=== PATIENT | male | born 1950 | race Caucasian/White ===

== ENCOUNTER 2016-05-14 12:33 | Emergency (ER) | payer BC ==
[2016-05-14 13:53] LABS: BASO # 0.1 K/mm3 (0.0-0.2); BASO % 0.8 % (0.0-1.0); EOS # 0.3 K/mm3 (0.0-0.50); LARGE UNSTAINED CELL # 0.2 K/mm3 (0.0-0.4); LARGE UNSTAINED CELL % 1.6 % (0.0-4.0); LYMPH # 1.3 K/mm3 (1.5-4.5); LYMPH % 14.1 % (24.0-44.0); MEAN CORPUSCULAR HEMOGLOBIN 29.3 pg (27.0-33.0); MEAN CORPUSCULAR VOLUME 88.9 fl (80.0-96.0); MONO # 0.5 K/mm3 (0.0-0.8); NEUTROPHILS # 7.1 K/mm3 (1.8-7.7); NEUTROPHILS % 75.4 % (36.0-66.0); PLATELET COUNT, AUTOMATED 356 k/mm3 (150-450); RED CELL DISTRIBUTION WIDTH 11.9 % (11.5-14.5); WHITE BLOOD COUNT 9.4 K/mm3 (4.0-10.0)
[2016-05-14 14:04] LABS: ANION GAP 7 MEQ/L (8-16); BLOOD UREA NITROGEN 18 MG/DL (7-18); CARBON DIOXIDE LEVEL 30 MEQ/L (21-32); CHLORIDE LEVEL 104 MEQ/L (98-107); CREATININE FOR GFR 0.97 MG/DL (0.70-1.30); GLOMERULAR FILTRATION RATE > 60.0 (>49); GLUCOSE, FASTING 86 MG/DL (80-110); POTASSIUM SERUM 4.2 MEQ/L (3.5-5.1); SODIUM LEVEL 141 MEQ/L (136-145)
[2016-05-14] MEDS ORDERED: ISOVUE-370 76% 100ML VIAL (Q9967) As Ordered ONE (14:13)
--- NOTE | 2016-05-14 15:05 | REP ---
CT pulmonary angiogram: With IV contrast. History: Right-sided chest pain, question pulmonary embolus. Comparison studies: CT study of the chest January 05, 2007. Contrast dose: 75 cc's of Isovue [address] technique: Helical scanning is acquired and overlapping 1.5 mm and contiguous 3 mm axial images are reformatted. In addition, a 3-D work station is deployed to generate thick slab maximum intensity projection images in sagittal and coronal imaging projections. CT pulmonary angiographic findings: There is good opacification of the pulmonary arterial tree. There is no CT evidence of pulmonary embolism. The thoracic aorta enhances homogeneously and is normal in caliber and contour. No aneurysm or dissection is seen. There is a peripheral and wedge-shaped infiltrate in the lateral segment of the right middle lobe associated with some plate-like atelectasis in the right middle lobe. No other infiltrate is seen. No pulmonary mass lesion is seen. No pleural effusion is noted. There is minimal linear fibrosis or plate-like atelectasis in the lower lobes bilaterally. No hilar or mediastinal mass or adenopathy is seen. The visualized upper abdominal structures are unremarkable. Impression: 1. No CT evidence of pulmonary embolus. 2. Right middle lobe infiltrate. 3. Plate-like atelectasis right middle lobe and both lower lobes. Signed by Moustapha Damon MD 05/14/2016 03:51 P
--- NOTE | 2016-05-14 15:07 | EDDOCDS ---
Nurse's Notes [facility] Name: Thelma Ocasio Age: 66 yrs Sex: Male : 1950 Arrival Date: 05/14/2016 Time: 12:33 Bed I6 / 28 Private MD: Ayush Michelle H. Diagnosis: Other pneumonia, unspecified organism-resolving right middle lobe pneumonia, no PE on CT Presentation: 05/14 12:38 Presenting complaint: Patient states: dx with pneumonia 1 week ago- Right sided srm pneumonia. developed right sided chest pain this past Tuesday. PMD wanted to do outpt CT but insurance wouldn't cover it. so mayda said to come her and get d dimer and have ct here if needed. Aspirin was not taken prior to arrival. Adult Sepsis Screening: The patient does not have new or worsening altered mentation. Patient's respiratory rate is less than 22. Systolic blood pressure is greater than 100. Patient has a qSOFA score of 0- Negative Sepsis Screen. Suicide/Homicide risk assessment- the patient denies having any suicidal and/or homicidal ideations and does not present with any other emotional, behavioral or mental health complaints. 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 Transition of care: patient was received from a primary care office; mayda. 12:38 Acuity: JARRELL Level 3 srm 12:38 Method Of Arrival: Walkin/Carried/Asstd [facility] Triage Assessment: 12:43 General: Appears in no apparent distress, Behavior is appropriate for age, cooperative. srm Pain: Denies pain. 15:05 Pt Declines HIV testing. Cardiovascular: Chest pain is denied. kc3 Historical: - Allergies: no known allergies; - Home Meds: 1. Synthroid 125 mcg Oral tab 1 tab once daily - PMHx: Thyroid problem; squamous celll carcinoma of toungue 2006; - PSHx: Adenoidectomy; Tonsillectomy; infusaport insertion and removal; hernia; feeding tube placment and removal; - Social history: Smoking status: Patient states former smoker of tobacco. No barriers to communication noted, The patient speaks fluent Albanian, Speaks appropriately for age. - Family history: Not pertinent. - : The pt / caregiver states he / she is not on anticoagulants. Home medication list is obtained from the patient. - Exposure Risk Screening:: None identified. Screenin:17 Screening information is obtained from the patient. Fall risk: No risks identified. pml Assistance ADL's: requires no assistance with activities of daily living. Abuse/DV Screen: The patient / caregiver reports he/she is: not in a situation that causes fear, pain or injury. Nutritional screening: No deficits noted. Advance Directives: Currently, there is no health care proxy. home support is adequate. Assessment: 12:51 General: Appears in no apparent distress, Behavior is appropriate for age, cooperative, srm pt's ekg and presenting complaint discussed with dr crowe. pt to proceed through RCE process. . Cardiovascular: Rhythm is regular. Respiratory:. 14:17 General: Appears in no apparent distress, Behavior is appropriate for age, cooperative. pml Pain: Denies pain. Neurological: Level of Consciousness is awake, alert, Oriented to person, place, time. Cardiovascular: Capillary refill < 3 seconds. Respiratory: Airway is patent Respiratory effort is even, unlabored. Derm: Skin is pink, warm & dry. 15:03 General: Appears in no apparent distress, comfortable, Behavior is appropriate for age, kc3 cooperative. Neurological: Level of Consciousness is awake, alert, obeys commands, Oriented to person, place, time. Respiratory: Respiratory effort is even, unlabored. Derm: Skin is pink, warm & dry. Vital Signs: 12:34 BP 164 / 104; Pulse 71; Resp 18 S; Temp 98.0; Pulse Ox 98% on R/A; Weight 86.18 kg (R); dd6 Height 5 ft. 8 in. (172.72 cm) (R); 13:16 BP 138 / 86 RA Sitting (man/lg); jb5 15:04 BP 163 / 98; Pulse 62; Resp 18; Temp 97.2(O); Pulse Ox 97% on R/A; kc3 12:34 Body Mass Index 28.89 (86.18 kg, 172.72 cm) dd6 Vitals: 12:34 Log In Time: May 14, 2016 at 12:32. RN notified that patient meets Red Flag dd6 criteria. ED Course: 12:34 Patient visited by Keanu Garcia PCA. dd6 12:34 Ayush Michelle is Private Physician. dd6 12:34 Patient moved to Waiting dd6 12:36 Patient moved to PR2 / 26 srm 12:41 Triage Initiated [facility] 12:43 Patient visited by Karen Chowdary RN. srm 12:43 EKG done. (by ED staff). gave to karen Montgomery RN. jb5 12:44 Patient visited by Mira Mnea PCA. jb5 12:51 EKG done. Reviewed by Veronica Rueda MD. srm 12:53 Patient visited by Karen Chowdary RN. srm 12:56 Patient moved to Triage 1 ttb 13:12 Rosanna Perea PA-C is PHCP. dt4 13:12 Veronica Rueda MD is Attending Physician. dt4 13:12 Patient visited by Rosanna Perea PA-C. dt4 13:16 Patient visited by Mira Mena PCA. jb5 13:39 Patient moved to I7 / 29 jo3 13:40 Patient moved to TR3 srm 14:07 [facility] Payment Agreement was scanned into [employer] and attached to record. lg 14:08 Patient moved to I6 / 28 jb5 14:17 Patient visited by Rosanna Perea PA-C. dt4 14:17 The patient / caregiver is instructed regarding the plan of care and ED course. Patient pml has correct armband on for positive identification. Placed in gown. Bed in low position. Call light in reach. Side rails up X2. 14:17 Inserted peripheral IV: 18gauge IV in right antecubital area and blood collected. pml Patient tolerated the procedure well. 14:18 Patient visited by Josefina Russell RN. pml 14:54 Ayush Michelle is Referral Physician. dt4 15:04 Cardiac monitoring not applicable on this patient. per provider discretion. kc3 15:04 Discontinued IV lock intact, bleeding controlled, pressure dressing applied, No kc3 redness/swelling at site. No procedures done that require assistance. Order Results: Lab Order: D-Dimer Quant; SPEC'M 05/14/16 13:40 Test: D-DIMER QUANT; Value: 1480.6; Range: <500; Abnormal: Above high normal; Units: ng/ml; Status: F Lab Order: CBC with Diff; SPEC'M 05/14/16 13:40 Test: WHITE BLOOD COUNT; Value: 9.4; Range: 4.0-10.0; Units: K/mm3; Status: F Test: RED BLOOD COUNT; Value: 5.21; Range: 4.30-6.10; Units: M/mm3; Status: F Test: HEMOGLOBIN; Value: 15.3; Range: 14.0-18.0; Units: g/dl; Status: F Test: HEMATOCRIT; Value: 46.3; Range: 42.0-52.0; Units: %; Status: F Test: MEAN CORPUSCULAR VOLUME; Value: 88.9; Range: 80.0-96.0; Units: fl; Status: F Test: MEAN CORPUSCULAR HEMOGLOBIN; Value: 29.3; Range: 27.0-33.0; Units: pg; Status: F Test: MEAN CORPUSCULAR HGB CONC; Value: 33.0; Range: 32.0-36.5; Units: g/dl; Status: F Test: RED CELL DISTRIBUTION WIDTH; Value: 11.9; Range: 11.5-14.5; Units: %; Status: F Test: PLATELET COUNT, AUTOMATED; Value: 356; Range: 150-450; Units: k/mm3; Status: F Test: NEUTROPHILS %; Value: 75.4; Range: 36.0-66.0; Abnormal: Above high normal; Units: %; Status: F Test: LYMPH %; Value: 14.1; Range: 24.0-44.0; Abnormal: Below low normal; Units: %; Status: F Test: MONO %; Value: 5.0; Range: 0.0-5.0; Units: %; Status: F Test: EOS %; Value: 3.0; Range: 0.0-3.0; Units: %; Status: F Test: BASO %; Value: 0.8; Range: 0.0-1.0; Units: %; Status: F Test: LARGE UNSTAINED CELL %; Value: 1.6; Range: 0.0-4.0; Units: %; Status: F Test: NEUTROPHILS #; Value: 7.1; Range: 1.8-7.7; Units: K/mm3; Status: F Test: LYMPH #; Value: 1.3; Range: 1.5-4.5; Abnormal: Below low normal; Units: K/mm3; Status: F Test: MONO #; Value: 0.5; Range: 0.0-0.8; Units: K/mm3; Status: F Test: EOS #; Value: 0.3; Range: 0.0-0.50; Units: K/mm3; Status: F Test: BASO #; Value: 0.1; Range: 0.0-0.2; Units: K/mm3; Status: F Test: LARGE UNSTAINED CELL #; Value: 0.2; Range: 0.0-0.4; Units: K/mm3; Status: F Lab Order: Basic Metabolic Profile; SPEC'M 05/14/16 13:40 Test: GLUCOSE, FASTING; Value: 86; Range: 80-110; Units: MG/DL; Status: F Test: BLOOD UREA NITROGEN; Value: 18; Range: 7-18; Units: MG/DL; Status: F Test: CREATININE FOR GFR; Value: 0.97; Range: 0.70-1.30; Units: MG/DL; Status: F Test: GLOMERULAR FILTRATION RATE; Value: > 60.0; Range: >49; Status: F Test: SODIUM LEVEL; Value: 141; Range: 136-145; Units: MEQ/L; Status: F Test: POTASSIUM SERUM; Value: 4.2; Range: 3.5-5.1; Units: MEQ/L; Status: F Test: CHLORIDE LEVEL; Value: 104; Range: 98-107; Units: MEQ/L; Status: F Test: CARBON DIOXIDE LEVEL; Value: 30; Range: 21-32; Units: MEQ/L; Status: F Test: ANION GAP; Value: 7; Range: 8-16; Abnormal: Below low normal; Units: MEQ/L; Status: F Test: CALCIUM LEVEL; Value: 10.0; Range: 8.8-10.2; Units: MG/DL; Status: F Test Note: ; Units are mL/min/1.73 m2 Chronic Kidney Disease Staging per NKF: Stage I & II GFR >=60 Normal to Mildly Decreased Stage III GFR 30-59 Moderately Decreased Stage IV GFR 15-29 Severely Decreased Stage V GFR <15 Very Little GFR Left ESRD GFR <15 on BIOMETRICS ANALYST Outcome: 14:55 Discharge ordered by Provider. dt4 15:05 Discharge Assessment: Patient awake, alert and oriented x 3. No cognitive and/or kc3 functional deficits noted. Patient verbalized understanding of disposition instructions. patient administered narcotics - no. The following High Risk Discharge criteria are identified: None. Discharged to home ambulatory. Condition: stable. Discharge instructions given to patient, Instructed on discharge instructions, follow up and referral plans. Demonstrated understanding of instructions, Pt was receptive of discharge instructions/ teaching. CT Study completed. Property :Personal belongings accompany Pt. 15:05 Patient left the ED. kc3 Signatures: Karen Chowdary, RN RN Yamila Douglass, Reg Reg lg Mira Mena, LOCK UP WORKER LOCK UP WORKER jb5 Yvonne MendozaRN RN jo3 Keanu Garcia, LOCK UP WORKER LOCK UP WORKER dd6 Josefina RussellRN Maryjane Verdin RN RN Rosanna Ramirez, PA-C PA-C dt4 Joyce Tello,RN RN kc3 MTDCandida
--- NOTE | 2016-05-14 15:07 | EDDOCDS ---
Physician Documentation [facility] Name: Thelma Ocasio Age: 66 yrs Sex: Male : 1950 Arrival Date: 05/14/2016 Time: 12:33 Bed I6 / 28 Private MD: Ayush Michelle H. Disposition: 05/14/16 14:55 Discharged to Home/Self Care. Impression: Other pneumonia, unspecified organism - resolving right middle lobe pneumonia, no PE on CT. - Condition is Stable. - Discharge Instructions: Pneumonia, Adult. - Medication Reconciliation, Local Pharmacy Hours form. - Follow up: Emergency Department; When: As needed; Reason: Worsening of conditions. Follow up: Ayush Michelle; When: 2 - 3 days; Reason: Wound/Symptom Recheck, Recheck today's complaints, Continuance of care. - Problem is new. - Symptoms are unchanged. Historical: - Allergies: no known allergies; - Home Meds: 1. Synthroid 125 mcg Oral tab 1 tab once daily - PMHx: Thyroid problem; squamous celll carcinoma of toungue 2006; - PSHx: Adenoidectomy; Tonsillectomy; infusaport insertion and removal; hernia; feeding tube placment and removal; - Social history: Smoking status: Patient states former smoker of tobacco. No barriers to communication noted, The patient speaks fluent Cymro, Speaks appropriately for age. - Family history: Not pertinent. - : The pt / caregiver states he / she is not on anticoagulants. Home medication list is obtained from the patient. - Exposure Risk Screening:: None identified. Vital Signs: 05/14 12:34 BP 164 / 104; Pulse 71; Resp 18 S; Temp 98.0; Pulse Ox 98% on R/A; Weight 86.18 kg / dd6 189.99 lbs (R); Height 5 ft. 8 in. (172.72 cm) (R); 13:16 BP 138 / 86 RA Sitting (man/lg); jb5 15:04 BP 163 / 98; Pulse 62; Resp 18; Temp 97.2(O); Pulse Ox 97% on R/A; kc3 12:34 Body Mass Index 28.89 (86.18 kg, 172.72 cm) dd6 MDM: 12:37 ECG WITH READING ER PHYS+CARDIAG ordered. EDMS 13:12 Recheck B/P ordered. dt4 13:36 IV Saline Lock ordered. dt4 13:36 ED course: PT AND PRESENT TO ED TODAY STATING PCP WOULD LIKE D-DIMER DRAWN AND dt4 POTENTIALLY A CT ANGIO TO R/O A PE. PT AND STATE THEY WERE RECENTLY IN [place], [place]OVE AND SPENT 5 DAYS IN [place] AND WHILE DRIVING UP TO [place], PT DEVELOPED SUDDEN ONSET RIGHT-SIDED CHEST PAIN. STATES THIS PAIN WAXED AND WANED FOR DAYS UNTIL HE WAS SEEN BY URGENT CARE, HAD A CXR POSITIVE FOR PNEUMONIA. PT STATES SINCE TAKING THE ANTIBIOTIC, HAS BEEN FEELING BETTER EVERYDAY AND CURRENTLY DENIES ANY CHEST PAIN/SOB, FEVER, N/V. . 13:38 D-Dimer Quant Ordered. EDMS 13:38 CBC with Diff Ordered. EDMS 13:38 Basic Metabolic Profile Ordered. EDMS 13:42 Financial registration complete. lg 14:07 [facility] Payment Agreement was scanned into [employer] and attached to record. lg 14:07 CT Chest Angio R/O PE Ordered. EDMS Signatures: Dispatcher [employer] EDMS Karen Chowdary, RN RN srm Yamila Arthur, Reg Reg lg Josefina Russell,RN YUSUF pml Rosanna Perea, PA-C PA-C dt4 Joyce Tello,RN RN kc3 The chart was reviewed and I authenticate all verbal orders and agree with the evaluation and treatment provided.Attachments: 14:07 [facility] Payment Agreement lg MTDD
--- NOTE | 2016-05-14 19:32 | ECGEPIP ---
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
--- NOTE | 2016-05-16 16:07 | EDDOCDS ---
Nurse's Notes [facility] Name: Juliann Ocasio Age: 66 yrs Sex: Male : 1950 Arrival Date: 05/14/2016 Time: 12:33 Bed I6 / 28 Private MD: Ayush Michelle H. Diagnosis: Other pneumonia, unspecified organism-resolving right middle lobe pneumonia, no PE on CT Presentation: 05/14 12:38 Presenting complaint: Patient states: dx with pneumonia 1 week ago- Right sided srm pneumonia. developed right sided chest pain this past Tuesday. PMD wanted to do outpt CT but insurance wouldn't cover it. so mayda said to come her and get d dimer and have ct here if needed. Aspirin was not taken prior to arrival. Adult Sepsis Screening: The patient does not have new or worsening altered mentation. Patient's respiratory rate is less than 22. Systolic blood pressure is greater than 100. Patient has a qSOFA score of 0- Negative Sepsis Screen. Suicide/Homicide risk assessment- the patient denies having any suicidal and/or homicidal ideations and does not present with any other emotional, behavioral or mental health complaints. Status: Patient is not a field service specialist or dependent. Transition of care: patient was received from a primary care office; mayda. 12:38 Acuity: JARRELL Level 3 srm 12:38 Method Of Arrival: Walkin/Carried/Asstd [facility] Triage Assessment: 12:43 General: Appears in no apparent distress, Behavior is appropriate for age, cooperative. srm Pain: Denies pain. 15:05 Pt Declines HIV testing. Cardiovascular: Chest pain is denied. kc3 Historical: - Allergies: no known allergies; - Home Meds: 1. Synthroid 125 mcg Oral tab 1 tab once daily - PMHx: Thyroid problem; squamous celll carcinoma of toungue 2006; - PSHx: Adenoidectomy; Tonsillectomy; infusaport insertion and removal; hernia; feeding tube placment and removal; - Social history: Smoking status: Patient states former smoker of tobacco. No barriers to communication noted, The patient speaks fluent Azeri, Speaks appropriately for age. - Family history: Not pertinent. - : The pt / caregiver states he / she is not on anticoagulants. Home medication list is obtained from the patient. - Exposure Risk Screening:: None identified. Screenin:17 Screening information is obtained from the patient. Fall risk: No risks identified. pml Assistance ADL's: requires no assistance with activities of daily living. Abuse/DV Screen: The patient / caregiver reports he/she is: not in a situation that causes fear, pain or injury. Nutritional screening: No deficits noted. Advance Directives: Currently, there is no health care proxy. home support is adequate. Assessment: 12:51 General: Appears in no apparent distress, Behavior is appropriate for age, cooperative, srm pt's ekg and presenting complaint discussed with dr crowe. pt to proceed through RCE process. . Cardiovascular: Rhythm is regular. Respiratory:. 14:17 General: Appears in no apparent distress, Behavior is appropriate for age, cooperative. pml Pain: Denies pain. Neurological: Level of Consciousness is awake, alert, Oriented to person, place, time. Cardiovascular: Capillary refill < 3 seconds. Respiratory: Airway is patent Respiratory effort is even, unlabored. Derm: Skin is pink, warm & dry. 15:03 General: Appears in no apparent distress, comfortable, Behavior is appropriate for age, kc3 cooperative. Neurological: Level of Consciousness is awake, alert, obeys commands, Oriented to person, place, time. Respiratory: Respiratory effort is even, unlabored. Derm: Skin is pink, warm & dry. Vital Signs: 12:34 BP 164 / 104; Pulse 71; Resp 18 S; Temp 98.0; Pulse Ox 98% on R/A; Weight 86.18 kg (R); dd6 Height 5 ft. 8 in. (172.72 cm) (R); 13:16 BP 138 / 86 RA Sitting (man/lg); jb5 15:04 BP 163 / 98; Pulse 62; Resp 18; Temp 97.2(O); Pulse Ox 97% on R/A; kc3 12:34 Body Mass Index 28.89 (86.18 kg, 172.72 cm) dd6 Vitals: 12:34 Log In Time: May 14, 2016 at 12:32. RN notified that patient meets Red Flag dd6 criteria. ED Course: 12:34 Patient visited by Keanu Garcia PCA. dd6 12:34 Ayush Michelle is Private Physician. dd6 12:34 Patient moved to Waiting dd6 12:36 Patient moved to PR2 / 26 srm 12:41 Triage Initiated [facility] 12:43 Patient visited by Karen Chowdary RN. srm 12:43 EKG done. (by ED staff). gave to karen Montgomery RN. jb5 12:44 Patient visited by Mira Mena PCA. jb5 12:51 EKG done. Reviewed by Veronica Rueda MD. srm 12:53 Patient visited by Karen Chowdary RN. srm 12:56 Patient moved to Triage 1 ttb 13:12 Rosanna Perea PA-C is PHCP. dt4 13:12 Veronica Rueda MD is Attending Physician. dt4 13:12 Patient visited by Rosanna Perea PA-C. dt4 13:16 Patient visited by Mira Mena PCA. jb5 13:39 Patient moved to I7 / 29 jo3 13:40 Patient moved to TR3 srm 14:07 [place] was scanned into [employer] and attached to record. lg 14:08 Patient moved to I6 / 28 jb5 14:17 Patient visited by Rosanna Perea PA-C. dt4 14:17 The patient / caregiver is instructed regarding the plan of care and ED course. Patient pml has correct armband on for positive identification. Placed in gown. Bed in low position. Call light in reach. Side rails up X2. 14:17 Inserted peripheral IV: 18gauge IV in right antecubital area and blood collected. pml Patient tolerated the procedure well. 14:18 Patient visited by Josefina Russell RN. pml 14:54 Ayush Michelle is Referral Physician. dt4 15:04 Cardiac monitoring not applicable on this patient. per provider discretion. kc3 15:04 Discontinued IV lock intact, bleeding controlled, pressure dressing applied, No kc3 redness/swelling at site. No procedures done that require assistance. 15:25 CT Chest Angio R/O PE Returned. EDMS 19:42 EKG-ADULT Returned. EDMS 05/15 07:47 ECG/EKG was scanned into [employer] and attached to record. gb 07:48 Radiology Report was scanned into [employer] and attached to record. gb 08:08 T-Sheet-- Draft Copy was scanned into [employer] and attached to record. [facility] Order Results: Lab Order: D-Dimer Quant; SPEC'M 05/14/16 13:40 Test: D-DIMER QUANT; Value: 1480.6; Range: <500; Abnormal: Above high normal; Units: ng/ml; Status: F Lab Order: CBC with Diff; SPEC'M 05/14/16 13:40 Test: WHITE BLOOD COUNT; Value: 9.4; Range: 4.0-10.0; Units: K/mm3; Status: F Test: RED BLOOD COUNT; Value: 5.21; Range: 4.30-6.10; Units: M/mm3; Status: F Test: HEMOGLOBIN; Value: 15.3; Range: 14.0-18.0; Units: g/dl; Status: F Test: HEMATOCRIT; Value: 46.3; Range: 42.0-52.0; Units: %; Status: F Test: MEAN CORPUSCULAR VOLUME; Value: 88.9; Range: 80.0-96.0; Units: fl; Status: F Test: MEAN CORPUSCULAR HEMOGLOBIN; Value: 29.3; Range: 27.0-33.0; Units: pg; Status: F Test: MEAN CORPUSCULAR HGB CONC; Value: 33.0; Range: 32.0-36.5; Units: g/dl; Status: F Test: RED CELL DISTRIBUTION WIDTH; Value: 11.9; Range: 11.5-14.5; Units: %; Status: F Test: PLATELET COUNT, AUTOMATED; Value: 356; Range: 150-450; Units: k/mm3; Status: F Test: NEUTROPHILS %; Value: 75.4; Range: 36.0-66.0; Abnormal: Above high normal; Units: %; Status: F Test: LYMPH %; Value: 14.1; Range: 24.0-44.0; Abnormal: Below low normal; Units: %; Status: F Test: MONO %; Value: 5.0; Range: 0.0-5.0; Units: %; Status: F Test: EOS %; Value: 3.0; Range: 0.0-3.0; Units: %; Status: F Test: BASO %; Value: 0.8; Range: 0.0-1.0; Units: %; Status: F Test: LARGE UNSTAINED CELL %; Value: 1.6; Range: 0.0-4.0; Units: %; Status: F Test: NEUTROPHILS #; Value: 7.1; Range: 1.8-7.7; Units: K/mm3; Status: F Test: LYMPH #; Value: 1.3; Range: 1.5-4.5; Abnormal: Below low normal; Units: K/mm3; Status: F Test: MONO #; Value: 0.5; Range: 0.0-0.8; Units: K/mm3; Status: F Test: EOS #; Value: 0.3; Range: 0.0-0.50; Units: K/mm3; Status: F Test: BASO #; Value: 0.1; Range: 0.0-0.2; Units: K/mm3; Status: F Test: LARGE UNSTAINED CELL #; Value: 0.2; Range: 0.0-0.4; Units: K/mm3; Status: F Lab Order: Basic Metabolic Profile; SPEC'M 05/14/16 13:40 Test: GLUCOSE, FASTING; Value: 86; Range: 80-110; Units: MG/DL; Status: F Test: BLOOD UREA NITROGEN; Value: 18; Range: 7-18; Units: MG/DL; Status: F Test: CREATININE FOR GFR; Value: 0.97; Range: 0.70-1.30; Units: MG/DL; Status: F Test: GLOMERULAR FILTRATION RATE; Value: > 60.0; Range: >49; Status: F Test: SODIUM LEVEL; Value: 141; Range: 136-145; Units: MEQ/L; Status: F Test: POTASSIUM SERUM; Value: 4.2; Range: 3.5-5.1; Units: MEQ/L; Status: F Test: CHLORIDE LEVEL; Value: 104; Range: 98-107; Units: MEQ/L; Status: F Test: CARBON DIOXIDE LEVEL; Value: 30; Range: 21-32; Units: MEQ/L; Status: F Test: ANION GAP; Value: 7; Range: 8-16; Abnormal: Below low normal; Units: MEQ/L; Status: F Test: CALCIUM LEVEL; Value: 10.0; Range: 8.8-10.2; Units: MG/DL; Status: F Test Note: ; Units are mL/min/1.73 m2 Chronic Kidney Disease Staging per NKF: Stage I & II GFR >=60 Normal to Mildly Decreased Stage III GFR 30-59 Moderately Decreased Stage IV GFR 15-29 Severely Decreased Stage V GFR <15 Very Little GFR Left ESRD GFR <15 on BEAD PREPARER Radiology Order: EKG-ADULT Test: EKG-ADULT REASON FOR EXAMINATION: Chest Pain; Stationary ECG Study; [facility] - ED; ; Test Date: 2016-05-14; Pat Name: JULIANN OCASIO Department:; Room: -; 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:; : 1950 Requested By: Veronica Rueda; Order Number: [id number] Reading MD: Veronica Rueda; Measurements; Intervals [place]; Rate: 76 P: 51; ID: [id number] QRS: -35; QRSD: 124 T: 67; QT: 375; QTc: 423; Interpretive Statements; SINUS RHYTHM; MARKED LEFT AXIS DEVIATION; MODERATE INTRAVENTRICULAR CONDUCTION DELAY; NSTTW ABNORMALITY; NO PRIOR FOR COMPARISON; Electronically Signed On 05-14-2016 19:32:14 EST by Veronica Rueda; Radiology Order: CT Chest Angio R/O PE Test: CT Chest Angio R/O PE REASON FOR EXAMINATION: right sided chest pain, r/o PE; CT pulmonary angiogram: With IV contrast.; ; History: Right-sided chest pain, question pulmonary embolus.; ; Comparison studies: CT study of the chest January 05, 2007.; ; Contrast dose: 75 cc's of Isovue 370 are administered intravenously.; ; CT technique: Helical scanning is acquired and overlapping 1.5 mm and contiguous; 3 mm axial images are reformatted. In addition, a 3-D work station is deployed; to generate thick slab maximum intensity projection images in sagittal and; coronal imaging projections.; ; CT pulmonary angiographic findings: There is good opacification of the pulmonary; arterial tree. There is no CT evidence of pulmonary embolism. The thoracic; aorta enhances homogeneously and is normal in caliber and contour. No aneurysm; or dissection is seen. There is a peripheral and wedge-shaped infiltrate in the; lateral segment of the right middle lobe associated with some plate-like; atelectasis in the right middle lobe. No other infiltrate is seen. No pulmonary; mass lesion is seen. No pleural effusion is noted. There is minimal linear; fibrosis or plate-like atelectasis in the lower lobes bilaterally. No hilar or; mediastinal mass or adenopathy is seen. The visualized upper abdominal; structures are unremarkable.; ; Impression:; ; 1. No CT evidence of pulmonary embolus.; ; 2. Right middle lobe infiltrate.; ; 3. Plate-like atelectasis right middle lobe and both lower lobes.; ; ; ; ; Signed by; Moustapha Damon MD 05/14/2016 03:51 P; Outcome: 05/14 14:55 Discharge ordered by Provider. dt4 15:05 Discharge Assessment: Patient awake, alert and oriented x 3. No cognitive and/or kc3 functional deficits noted. Patient verbalized understanding of disposition instructions. patient administered narcotics - no. The following High Risk Discharge criteria are identified: None. Discharged to home ambulatory. Condition: stable. Discharge instructions given to patient, Instructed on discharge instructions, follow up and referral plans. Demonstrated understanding of instructions, Pt was receptive of discharge instructions/ teaching. CT Study completed. Property :Personal belongings accompany Pt. 15:05 Patient left the ED. kc3 Signatures: Dispatcher [employer] EDMS Karen Chowdary, RN YUSUF [facility] Fidelina, Bhavani, Reg Reg gb Yamila Arthur, Reg Reg lg Mira Mena, MECHANIC AND WELDER MECHANIC AND WELDER jb5 Yvonne Mendoza RN RN jo3 Keanu Garcia, MECHANIC AND WELDER MECHANIC AND WELDER dd6 Josefina Russell RN RN pml Conner, Teresa, RN RN ttb Tschudi, Diane, PA-C PA-C dt4 Joyce Tello RN RN kc3 Veronica Lowery Chart Complete MTDD
--- NOTE | 2016-05-16 16:07 | EDDOCDS ---
Physician Documentation [facility] Name: Thelma Ocasio Age: 66 yrs Sex: Male : 1950 Arrival Date: 05/14/2016 Time: 12:33 Bed I6 / 28 Private MD: Ayush Michelle H. Disposition: 05/14/16 14:55 Discharged to Home/Self Care. Impression: Other pneumonia, unspecified organism - resolving right middle lobe pneumonia, no PE on CT. - Condition is Stable. - Discharge Instructions: Pneumonia, Adult. - Medication Reconciliation, Local Pharmacy Hours form. - Follow up: Emergency Department; When: As needed; Reason: Worsening of conditions. Follow up: Ayush Michelle; When: 2 - 3 days; Reason: Wound/Symptom Recheck, Recheck today's complaints, Continuance of care. - Problem is new. - Symptoms are unchanged. Historical: - Allergies: no known allergies; - Home Meds: 1. Synthroid 125 mcg Oral tab 1 tab once daily - PMHx: Thyroid problem; squamous celll carcinoma of toungue 2006; - PSHx: Adenoidectomy; Tonsillectomy; infusaport insertion and removal; hernia; feeding tube placment and removal; - Social history: Smoking status: Patient states former smoker of tobacco. No barriers to communication noted, The patient speaks fluent Vietnamese, Speaks appropriately for age. - Family history: Not pertinent. - : The pt / caregiver states he / she is not on anticoagulants. Home medication list is obtained from the patient. - Exposure Risk Screening:: None identified. Vital Signs: 05/14 12:34 BP 164 / 104; Pulse 71; Resp 18 S; Temp 98.0; Pulse Ox 98% on R/A; Weight 86.18 kg / dd6 189.99 lbs (R); Height 5 ft. 8 in. (172.72 cm) (R); 13:16 BP 138 / 86 RA Sitting (man/lg); jb5 15:04 BP 163 / 98; Pulse 62; Resp 18; Temp 97.2(O); Pulse Ox 97% on R/A; kc3 12:34 Body Mass Index 28.89 (86.18 kg, 172.72 cm) dd6 MDM: 12:37 ECG WITH READING ER PHYS+CARDIAG ordered. EDMS 13:12 Recheck B/P ordered. dt4 13:36 IV Saline Lock ordered. dt4 13:36 ED course: PT AND PRESENT TO ED TODAY STATING PCP WOULD LIKE D-DIMER DRAWN AND dt4 POTENTIALLY A CT ANGIO TO R/O A PE. PT AND STATE THEY WERE RECENTLY IN [place], DROVE AND SPENT 5 DAYS IN [place] AND WHILE DRIVING UP TO [place], PT DEVELOPED SUDDEN ONSET RIGHT-SIDED CHEST PAIN. STATES THIS PAIN WAXED AND WANED FOR DAYS UNTIL HE WAS SEEN BY URGENT CARE, HAD A CXR POSITIVE FOR PNEUMONIA. PT STATES SINCE TAKING THE ANTIBIOTIC, HAS BEEN FEELING BETTER EVERYDAY AND CURRENTLY DENIES ANY CHEST PAIN/SOB, FEVER, N/V. . 13:38 D-Dimer Quant Ordered. EDMS 13:38 CBC with Diff Ordered. EDMS 13:38 Basic Metabolic Profile Ordered. EDMS 13:42 Financial registration complete. lg 14:[address] [facility] [place] Payment Agreement was scanned into [employer] and attached to record. lg 14:07 CT Chest Angio R/O PE Ordered. EDMS 05/15 07:47 ECG/EKG was scanned into [employer] and attached to record. gb 07:48 Radiology Report was scanned into [employer] and attached to record. gb 08:08 T-Sheet-- Draft Copy was scanned into [employer] and attached to record. [facility] Signatures: Dispatcher [employer] EDNC Karen Chowdary, RN YUSUF [facility] Bhavani Kitchen, Reg Reg gb Yamila Arthur, Reg Reg lg Josefina Russell RN RN pml Tschudi, Diane, PAObed PA-C dt4 Joyce Tello RN RN kc3 Veronica Lowery [facility] The chart was reviewed and I authenticate all verbal orders and agree with the evaluation and treatment provided.Attachments: 05/14 14:[address] [facility] [place] Payment Agreement lg 05/15 07:47 ECG/EKG gb 08:08 T-Sheet-- Draft Copy [facility] Chart Complete MTDD
--- NOTE | 2016-05-16 16:07 | EDDOCDS ---
Physician Documentation [facility] Name: Thelma Ocasio Age: 66 yrs Sex: Male : 1950 Arrival Date: 05/14/2016 Time: 12:33 Bed I6 / 28 Private MD: Ayush Michelle H. Disposition: 05/14/16 14:55 Discharged to Home/Self Care. Impression: Other pneumonia, unspecified organism - resolving right middle lobe pneumonia, no PE on CT. - Condition is Stable. - Discharge Instructions: Pneumonia, Adult. - Medication Reconciliation, Local Pharmacy Hours form. - Follow up: Emergency Department; When: As needed; Reason: Worsening of conditions. Follow up: Ayush Michelle; When: 2 - 3 days; Reason: Wound/Symptom Recheck, Recheck today's complaints, Continuance of care. - Problem is new. - Symptoms are unchanged. Historical: - Allergies: no known allergies; - Home Meds: 1. Synthroid 125 mcg Oral tab 1 tab once daily - PMHx: Thyroid problem; squamous celll carcinoma of toungue 2006; - PSHx: Adenoidectomy; Tonsillectomy; infusaport insertion and removal; hernia; feeding tube placment and removal; - Social history: Smoking status: Patient states former smoker of tobacco. No barriers to communication noted, The patient speaks fluent Thai, Speaks appropriately for age. - Family history: Not pertinent. - : The pt / caregiver states he / she is not on anticoagulants. Home medication list is obtained from the patient. - Exposure Risk Screening:: None identified. Vital Signs: 05/14 12:34 BP 164 / 104; Pulse 71; Resp 18 S; Temp 98.0; Pulse Ox 98% on R/A; Weight 86.18 kg / dd6 189.99 lbs (R); Height 5 ft. 8 in. (172.72 cm) (R); 13:16 BP 138 / 86 RA Sitting (man/lg); jb5 15:04 BP 163 / 98; Pulse 62; Resp 18; Temp 97.2(O); Pulse Ox 97% on R/A; kc3 12:34 Body Mass Index 28.89 (86.18 kg, 172.72 cm) dd6 MDM: 12:37 ECG WITH READING ER PHYS+CARDIAG ordered. EDMS 13:12 Recheck B/P ordered. dt4 13:36 IV Saline Lock ordered. dt4 13:36 ED course: PT AND PRESENT TO ED TODAY STATING PCP WOULD LIKE D-DIMER DRAWN AND dt4 POTENTIALLY A CT ANGIO TO R/O A PE. PT AND STATE THEY WERE RECENTLY IN [place], DROVE AND SPENT 5 DAYS IN [place] AND WHILE DRIVING UP TO [place], PT DEVELOPED SUDDEN ONSET RIGHT-SIDED CHEST PAIN. STATES THIS PAIN WAXED AND WANED FOR DAYS UNTIL HE WAS SEEN BY URGENT CARE, HAD A CXR POSITIVE FOR PNEUMONIA. PT STATES SINCE TAKING THE ANTIBIOTIC, HAS BEEN FEELING BETTER EVERYDAY AND CURRENTLY DENIES ANY CHEST PAIN/SOB, FEVER, N/V. . 13:38 D-Dimer Quant Ordered. EDMS 13:38 CBC with Diff Ordered. EDMS 13:38 Basic Metabolic Profile Ordered. EDMS 13:42 Financial registration complete. lg 14:07 [facility] [place] Payment Agreement was scanned into [employer] and attached to record. lg 14:07 CT Chest Angio R/O PE Ordered. EDMS 05/15 07:47 ECG/EKG was scanned into [employer] and attached to record. gb 07:48 Radiology Report was scanned into [employer] and attached to record. gb 08:08 T-Sheet-- Draft Copy was scanned into [employer] and attached to record. [facility] Signatures: Dispatcher [employer] EDMA Karen Chowdary, RN YUSUF [facility] Bhavani Kitchen, Reg Reg gb Yamila Arthur, Reg Reg lg Josefina Russell RN RN pml Tschudi, Diane, PAObed PA-C dt4 Joyce Tello RN RN kc3 Veronica Lowery [facility] The chart was reviewed and I authenticate all verbal orders and agree with the evaluation and treatment provided.Attachments: 05/14 14:07 [facility] Payment Agreement lg 05/15 07:47 ECG/EKG gb 08:08 T-Sheet-- Draft Copy [facility] Chart Complete MTDD
== END 2016-05-14 15:05 | disposition home or self-care (01) ==
LOC: M ED 12:33
DX: J18.9 Pneumonia, unspecified organism (principal); E03.9 Hypothyroidism, unspecified; Z87.09 Personal history of other diseases of the respiratory system; Z85.810 Personal history of malignant neoplasm of tongue; Z79.52 Long term (current) use of systemic steroids; Z87.891 Personal history of nicotine dependence
CPT/HCPCS: 36415; 71275; 80048; 85025; 85379; 93005; 99284; Q9967

== ENCOUNTER → 2018-05-17 | Outpatient (CLI) | payer MEDICARE ==
--- NOTE | 2018-05-23 02:44 | REP ---
Clinical: Abdominal pain with changes in bowel habit. Sitz marker study. Technique: Two supine views of the abdomen and pelvis. Findings: Bowel gas pattern is nonspecific. No residual sitz markers are identified. No organomegaly. Skeletal structures demonstrate age-related changes. Calcifications in the pelvis likely represent phleboliths. Impression: 1. Nonspecific bowel gas pattern 2. No residual sitz markers noted. Electronically Signed by Alex Trammell MD 05/23/2018 02:35 A
== END ==
LOC: M RAD 11:52
PROVIDERS: ATTEND Internal Medicine Gastroenterology
DX: R15.2 Fecal urgency (principal)

== ENCOUNTER 2018-06-22 07:32 | Day surgery (SDC) | payer MEDICARE ==
[~2018-06-22] VITALS: Ht 170.2 cm; Wt 86.1 kg
[~2018-06-22 07:32] MED LIST: DICY20TA11 PO; FIBE625T PO; LATA1POW OU; LEVO150T7 PO; MULT1TAB10 PO; NS 1,000 ML IV ONE
[2018-06-22] MEDS ORDERED: LIDOCAINE 2% INJ 100 MG/5 ML SDV (FOR ANES.) As Ordered ONE (08:23)
[2018-06-22] MEDS ORDERED: PROPOFOL 200 MG/20 ML VIAL As Ordered ONE (08:23)
--- NOTE | 2018-06-22 08:52 | ROOR ---
Patient Name: Thelma Ocasio Procedure Date: 06/22/2018 8:22 AM Date of : 1950 Age: 68 Room: [facility] Gender: Male Note Status: Finalized Procedure: Colonoscopy Indications: Fecal incontinence Providers: Dale JONES MD Referring MD: ALIDA CHRISTENSEN MD Requesting Provider: Medicines: Monitored Anesthesia Care Complications: No immediate complications. Procedure: Pre-Anesthesia Assessment: - The heart rate, respiratory rate, oxygen saturations, blood pressure, adequacy of pulmonary ventilation, and response to care were monitored throughout the procedure. The Colonoscope was introduced through the anus and advanced to the cecum, identified by appendiceal orifice and ileocecal valve. The colonoscopy was somewhat difficult due to a redundant colon. Successful completion of the procedure was aided by applying abdominal pressure. Findings: The perianal and digital rectal examinations were normal. Two sessile polyps were found in the cecum. The polyps were diminutive in size. These polyps were removed with a cold snare. Resection and retrieval were complete. Small Internal Hemorrhoids. The exam was otherwise without abnormality on direct and retroflexion views. Impression: - Two diminutive polyps in the cecum, removed with a cold snare. Resected and retrieved. - Small Internal Hemorrhoids. - Redundant colon - The colon examination was otherwise normal on direct and retroflexion views. Recommendation: RE: Fecal urgency/smearing/incontinence. - Use fiber, for example Citrucel, Fibercon, Konsyl or Metamucil. - Miralax 1 capful (17 grams) in 8 ounces of water PO daily. - (I suspect your fecal incontinence may be caused by constipation/impaction with overflow symptoms. Goal will be to keep stools soft to allow for better/more complete emptying with bowel movement). RE Polyps: - Telephone endoscopist for pathology results in 2 weeks. - If the pathology report reveals adenomatous tissue, then repeat the colonoscopy for surveillance in 5 years. - If the pathology report indicates hyperplastic polyp, then repeat colonoscopy for screening purposes in 10 years. Dale Jones MD Dale JONES MD 06/22/2018 8:52:01 AM This report has been signed electronically. Number of Addenda: 0 Note Initiated On: 06/22/2018 8:22 AM Estimated Blood Loss: Estimated blood loss: none.
[2018-06-22 09:13] VITALS: BP 119/82
== END 2018-06-22 09:15 | disposition home or self-care (01) ==
LOC: M OPP 07:32
PROVIDERS: ATTEND Internal Medicine Gastroenterology
DX: D12.0 Benign neoplasm of cecum (principal); K64.8 Other hemorrhoids; Q43.8 Other specified congenital malformations of intestine; R15.9 Full incontinence of feces

== ENCOUNTER 2019-06-05 10:19 | Day surgery (SDC) | payer MEDICARE ==
[~2019-06-05] VITALS: Ht 170.2 cm; Wt 79.4 kg
[~2019-06-05 10:19] MED LIST changes: +AMLO10TA5 PO; +LIDOCAINE 1% MDV 20ML VIAL SQ PRN; +LR 1,000 ML IV ONE; -NS 1,000 ML IV ONE
[2019-06-05] MEDS ORDERED: LIDOCAINE 2% INJ 100 MG/5 ML SDV (FOR ANES.) As Ordered ONE (12:37)
[2019-06-05] MEDS ORDERED: propofoL 200 MG/20 ML VIAL As Ordered ONE (12:37)
[2019-06-05] MEDS ORDERED: ROCURONIUM BROMIDE 50 MG/5 ML VIAL As Ordered ONE ×2 (12:37→14:33)
[2019-06-05] MEDS ORDERED: KETOROLAC 60 MG/2 ML VIAL (J1885) As Ordered ONE ×2 (12:37→13:53)
[2019-06-05] MEDS ORDERED: dexameTHASONE 4 MG/ML 1ML VIAL (J1100) As Ordered ONE (12:38)
[2019-06-05] MEDS ORDERED: ONDANSETRON 4MG/2ML VIAL (J2405) As Ordered ONE ×2 (12:38→15:24)
[2019-06-05] MEDS ORDERED: BUPIVACAINE HCL 0.25% 30 ML VIAL As Ordered ONE (13:04)
[2019-06-05] MEDS ORDERED: HYDR-3713 PO (13:09)
--- NOTE | 2019-06-05 13:18 | ECGEPIP ---
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 Electronically Signed on 06-05-2019 13:18:16 EST by Dale Marks
[2019-06-05] MEDS ORDERED: ACETAMINOPHEN 1000MG 100ML IV BTL (OFIRMEV) (J0131 PER 10MG) As Ordered ONE (14:34)
[2019-06-05] MEDS ORDERED: SUGAMMADEX SODIUM 500 MG/5 ML VIAL (BRIDION) As Ordered ONE (14:49)
[2019-06-05] MEDS ORDERED: fentaNYL 100 MCG/2 ML INJECTION (J3010) As Ordered ONE (14:53)
[2019-06-05] MEDS ORDERED: PERCOCET 5MG/325MG TAB As Ordered ONE (15:25)
[2019-06-05] MEDS ORDERED: IBUPROFEN 600 MG TAB PO PRN (15:45)
[2019-06-05] MEDS ORDERED: NORCO, ANEXSIA 5/325MG TABLET (HYDROcodone/ACETAMINOPHEN) PO PRN (15:45)
[2019-06-05] MEDS ORDERED: PERCOCET 5MG/325MG TAB PO PRN (15:45)
[2019-06-05] MEDS ORDERED: LR 1,000 ML IV SCH (15:45)
[2019-06-05] MEDS ORDERED: ONDANSETRON 4MG/2ML VIAL (J2405) IV PRN (15:45)
[2019-06-05] MEDS ORDERED: fentaNYL 100 MCG/2 ML INJECTION (J3010) IV PRN (15:45)
[2019-06-05] MEDS ORDERED: ACETAMINOPHEN TAB 650MG DOSE (2X325MG) PO PRN (15:45)
[2019-06-05 17:20] VITALS: BP 171/95
--- NOTE | 2019-06-06 12:55 | RO ---
DATE OF PROCEDURE: 06/05/2019 PREOPERATIVE DIAGNOSIS: Left inguinal hernia. POSTOPERATIVE DIAGNOSIS: Direct left inguinal hernia. PROCEDURE PERFORMED: Robotic-assisted laparoscopic left inguinal herniorrhaphy with mesh. The mesh utilized was a Bard 3-D Max light mesh large in size developed for the left side. This was reference code [id number], lot number [id number]. SURGEON: Dr. Fofana BATTERY STACKER: JEYSON Emmanuel. Tiffany was essential for placement of trocars, management of the robot, including a change of instruments and insertion of needles and the mesh. She also closed the incisions. ANESTHESIA: General. INDICATIONS FOR PROCEDURE: The patient 69-year-old man who noted a bulge in the left inguinal area. He was found on exam to have a reducible left inguinal hernia and is now for repair of same. OPERATIVE PROCEDURE: The patient was brought to the operating room and placed on the table in a supine position. He was placed under general endotracheal anesthesia. The patient's abdomen was prepped and draped in a sterile fashion. 0.25% Marcaine was infiltrated at the trocar sites as needed. A short transverse incision was made approximately 2 cm to the right of the midline and approximately 3 cm above the level of the umbilicus. A Veress needle was inserted and after positive hanging drop test the abdomen was insufflated with carbon dioxide gas. An 8 mm robotic port was placed over 5 mm scope and advanced through the abdominal wall without difficulty. Initial examination showed normal-appearing small bowel. There was a definite hernia defect identified in the left inguinal area. Some scarring was noted on the right consistent with a prior hernia repair. Two additional 8 mm ports were placed, one to the right and one to the left at the initial port. The patient was tilted into an approximately 15 degrees Trendelenburg position. The [employer] XI patient cart was brought into position and that the endoscope port was docked to the appropriate arm. Targeting took place and the additional arms were then docked as well. A forced bipolar and cauterizing scissor were inserted. I then moved to the control console to proceed with the operation. A peritoneal flap was developed beginning at the medial umbilical ligament and extending laterally and inferiorly. The flap was developed using a combination of sharp and blunt and cautery dissection. The patient was found to have a small to moderate-sized direct inguinal hernia. The hernia sac was completely invaginated intact. This was then peeled away from the underlying structures of the spermatic cord. The vessels and vas deferens were preserved. After adequately developing the preperitoneal space, a Bard 3-D Max light mesh was inserted. This was placed over the inguinal floor. A 2-0 Vicryl was used to tack this to the fascia medially and also with a suture in the upper outer aspect of the mesh tacking this the overlying fascia. The intra-abdominal pressure was reduced to 8 mmHg. A 2-0 V-Loc suture was then used to close the preperitoneal fat flap. As we approached completion of the flap closure, the patient was taken out of the Trendelenburg position. Once the flap was completely closed. The needles were removed. The robotic instruments were removed. The abdomen was deflated and the trocars were removed. Tiffany Dodson then proceeded to close the skin incisions with 4-0 Vicryl buried sutures and Steri-Strips. Light dressings were applied. The patient tolerated the procedure well without apparent complication. He was awakened in the operating room, extubated and moved to the recovery room in stable condition.
== END 2019-06-05 17:40 | disposition home or self-care (01) ==
LOC: M SDC 10:19
PROVIDERS: ATTEND Surgery
DX: K40.90 Unilateral inguinal hernia, without obstruction or gangrene, not specified as recurrent (principal); I10 Essential (primary) hypertension; E03.9 Hypothyroidism, unspecified; N40.0 Benign prostatic hyperplasia without lower urinary tract symptoms; Z92.21 Personal history of antineoplastic chemotherapy; Z92.3 Personal history of irradiation
CPT/HCPCS: 49650; 93005; C1781; J0131; J1100; J1885; J2405; J3010

== ENCOUNTER 2019-10-06 19:25 | Emergency (ER) | payer MEDICARE ==
[~2019-10-06] VITALS: Ht 170.2 cm; Wt 83.0 kg
[~2019-10-06 19:25] MED LIST changes: +HYDR-3713 PO; -LIDOCAINE 1% MDV 20ML VIAL SQ PRN; -LR 1,000 ML IV ONE
[2019-10-06 19:26] VITALS: BP 164/90
[2019-10-06 19:56] LABS: BASO # 0.1 10^3/uL (0.0-0.2); BASO % 0.6 % (0.0-1.0); EOS # 0.3 10^3/uL (0.0-0.5); EOS % 2.5 % (0.0-3.0); HEMATOCRIT 42.4 % (42.0-52.0); HEMOGLOBIN 14.3 g/dl (13.5-17.5); LYMPH # 1.2 10^3/uL (1.5-5.0); LYMPH % 11.8 % (24.0-44.0); MEAN CORPUSCULAR HEMOGLOBIN 30.1 pg (27.0-33.0); MEAN CORPUSCULAR HGB CONC 33.7 g/dl (32.0-36.5); MEAN CORPUSCULAR VOLUME 89.3 fl (80.0-96.0); MONO % 9.6 % (0.0-5.0); NEUTROPHILS # 7.5 10^3/uL (1.5-8.5); NEUTROPHILS % 75.3 % (36.0-66.0); PLATELET COUNT, AUTOMATED 225 10^3/uL (150-450); RED BLOOD COUNT 4.75 10^6/uL (4.30-6.10)
[2019-10-06] MEDS ORDERED: ASPIRIN 81 MG CHEW TABLET PO ONE (20:00)
[2019-10-06 20:23] LABS: BLOOD UREA NITROGEN 16 MG/DL (7-18); CALCIUM LEVEL 8.2 MG/DL (8.8-10.2); CARBON DIOXIDE LEVEL 25 MEQ/L (21-32); CHLORIDE LEVEL 104 MEQ/L (98-107); CREATININE FOR GFR 0.86 MG/DL (0.70-1.30); GLOMERULAR FILTRATION RATE > 60.0 (>49); GLUCOSE, FASTING 93 MG/DL (70-100); POTASSIUM SERUM 4.2 MEQ/L (3.5-5.1); SODIUM LEVEL 139 MEQ/L (136-145)
--- NOTE | 2019-10-07 08:46 | REP ---
Chest x-ray: Sitting portable view. History: Chest pain. Findings: There is an infiltrate in the right base below the scapular tip consistent with pneumonia. The lungs are otherwise well inflated and clear. Mild cardiomegaly. The aorta somewhat tortuous. Monitoring electrodes are seen. Pulmonary vasculature is not increased. Impression: Opacity right lung base consistent with pneumonia. Follow-up chest x-ray recommended. Electronically Signed by Moustapha Damon MD 10/07/2019 08:37 A
--- NOTE | 2019-10-08 15:17 | ECGEPIP ---
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
== END 2019-10-06 21:00 | disposition home or self-care (01) ==
LOC: M ED 19:25
DX: J18.9 Pneumonia, unspecified organism (principal)

== ENCOUNTER → 2019-11-01 | Outpatient (CLI) | payer MEDICARE ==
[~2019-11-01] MED LIST changes: -AMLO10TA5 PO; +AMLO1TAB25 PO
--- NOTE | 2019-11-01 13:44 | REP ---
CHEST, TWO VIEWS: Two views of the chest performed and compared to a prior study 10/06/2019. There does appear to be improvement of the previously noted right basilar infiltrate likely located in the middle lobe. However, there is mild residual opacity which is ill-defined. The left lung again demonstrates no infiltrate with mild linear fibroatelectatic change inferolaterally. The heart is normal in size and there is mild calcification of the thoracic aorta. The mediastinal silhouette is unchanged. There are mild degenerative changes of the spine. IMPRESSION: Improved right middle lobe infiltrate with mild residual. Continued followup recommended. If the infiltrate does not resolve, recommend CT of the chest. Electronically Signed by Mike Muller MD 11/04/2019 11:38 P
== END ==
LOC: M WUC 11:23
PROVIDERS: ATTEND Internal Medicine
DX: J18.9 Pneumonia, unspecified organism (principal)

== ENCOUNTER → 2019-11-26 | Outpatient (REF) | payer MEDICARE ==
[2020-01-02 10:21] LABS: HEPATITIS C QUANTITATION SEE SEPARATE REPORT
[2020-01-02 10:22] LABS: CHAGAS DISEASE ANTIBODY IgG SEE SEPARATE REPORT
[2020-01-09 12:04] LABS: ALBUMIN 4.2 GM/DL (3.2-5.2); BILIRUBIN,DIRECT 0.2 MG/DL (0.0-0.2); BILIRUBIN,TOTAL 0.8 MG/DL (0.2-1.0); HEPATITIS C VIRUS ABY INDEX 0.3 INDEX (<0.8); TOTAL PROTEIN 7.7 GM/DL (6.4-8.2)
== END ==
LOC: M SFHCPLAZ 12:44
PROVIDERS: ATTEND Internal Medicine Infectious Disease
DX: B18.2 Chronic viral hepatitis C (principal)
CPT/HCPCS: 36415; 80076; 86753; 86803; 87522; G0463

== ENCOUNTER → 2019-12-06 | Outpatient (CLI) | payer MEDICARE ==
--- NOTE | 2020-01-09 10:16 | REP ---
CHEST X-RAY: 3-VIEWS HISTORY: Pneumonia. COMPARISON: 11/01/2019. FINDINGS: There is mild linear fibrosis in the right middle lobe distribution today. The previously noted infiltrate is otherwise resolved. No new infiltrate is seen. Minimal linear plate-like atelectasis or fibrosis is present in the left base. No new infiltrate is seen. Pleural angles are sharp. Cardiomediastinal silhouette is unremarkable. IMPRESSION: Mild bibasilar linear fibrosis. No infiltrate seen. MTDD
== END ==
LOC: M WUC 10:36
PROVIDERS: ATTEND Internal Medicine
DX: J84.10 Pulmonary fibrosis, unspecified (principal)

== ENCOUNTER 2021-01-03 09:11 | Emergency (ER) | payer MEDICARE ==
[~2021-01-03] VITALS: Ht 172.7 cm; Wt 78.2 kg
--- NOTE | 2021-01-03 09:41 | REP ---
INDICATION: hemoptysis. COMPARISON: 12/06/2019 TECHNIQUE: PA and lateral FINDINGS: There are chronic bibasilar curvilinear densities status quo. There are no acute patchy parenchymal opacities or pleural effusions. The cardiomediastinal silhouette is stable. The heart is not enlarged. The osseous structures are stable and intact. IMPRESSION: Stable appearing chronic changes. <Electronically signed by Bin De Luna > 01/03/21 0937
[2021-01-03 10:27] LABS: BASO # 0.1 10^3/uL (0.0-0.2); BASO % 0.6 % (0.0-1.0); EOS # 0.5 10^3/uL (0.0-0.5); EOS % 5.8 % (0.0-3.0); HEMATOCRIT 44.4 % (42.0-52.0); HEMOGLOBIN 14.7 g/dl (13.5-17.5); LYMPH # 1.1 10^3/uL (1.5-5.0); LYMPH % 12.8 % (24.0-44.0); MEAN CORPUSCULAR HEMOGLOBIN 29.5 pg (27.0-33.0); MEAN CORPUSCULAR HGB CONC 33.1 g/dl (32.0-36.5); MEAN CORPUSCULAR VOLUME 89.2 fl (80.0-96.0); MONO # 0.6 10^3/uL (0.0-0.8); MONO % 6.6 % (2.0-8.0); NEUTROPHILS # 6.3 10^3/uL (1.5-8.5); NEUTROPHILS % 73.8 % (36.0-66.0); PLATELET COUNT, AUTOMATED 218 10^3/uL (150-450); RED BLOOD COUNT 4.98 10^6/uL (4.30-6.10); WHITE BLOOD COUNT 8.5 10^3/uL (4.0-10.0)
[2021-01-03 10:39] LABS: INR 0.89; PROTHROMBIN TIME 12.4 SECONDS (12.7-14.5)
[2021-01-03] MEDS ORDERED: ISOVUE-370 76% 100ML VIAL As Ordered ONE (10:54)
[2021-01-03 10:55] LABS: ALBUMIN 3.8 GM/DL (3.2-5.2); BILIRUBIN,DIRECT 0.2 MG/DL (0.0-0.2); BILIRUBIN,TOTAL 0.9 MG/DL (0.2-1.0); TOTAL PROTEIN 7.4 GM/DL (6.4-8.2)
--- NOTE | 2021-01-03 11:26 | REP ---
INDICATION: hemptysis COMPARISON: 05/14/2016 the latest prior TECHNIQUE: CT angiography attention pulmonary arteries after the intravenous administration of 75 cc Isovue 370. FINDINGS: There is excellent visualization of the pulmonary arterial vasculature. There are no focal filling defects present that would be considered consistent with acute pulmonary emboli. Limited evaluation of the thoracic aorta shows no abnormality. Prominent mediastinal and right hilar lymph nodes are noted without adenopathy. There is no pleural or pericardial effusion. The imaged upper abdomen is unchanged from the prior exam. The imaged osseous structures are stable and intact. Evaluation of the lung pradhan shows scattered patchy ground-glass opacities bilaterally and an area of wedge-shaped consolidation in the right lower lobe. A smaller area of consolidation is also seen in the inferior right middle lobe. The right middle lobe opacity was present on the prior exam but is smaller today. There is debris in multiple right lower lobe bronchioles representing a change from the prior exam. IMPRESSION: 1. There is no evidence of a pulmonary embolus. 2. Diffuse bilateral patchy ground-glass opacities consistent with pneumonia. This needs to be followed up with clinical correlation. 3. Patchy area of consolidation in the right lower lobe pneumonia versus atelectasis. Neoplastic change cannot be ruled out. Follow-up is required. 4. Right middle lobe opacity as described above which is smaller and less dense when compared to the prior exam. Whether this represents acute upon chronic change cannot be determined by this exam. Follow-up is recommended. 5. There is evidence of inspissated debris in multiple right lower lobe bronchioles. This could be causing postobstructive right lower lobe pneumonia/atelectasis/or a combination of both. Infectious/inflammatory etiology.. 6. Other findings as described above. <Electronically signed by Bin De Luna > 01/03/21 1125
--- NOTE | 2021-01-03 13:01 | REPVR ---
PROCEDURE INFORMATION: Exam: CT Neck With Contrast Exam date and time: 01/03/2021 11:05 AM Age: 70 years old Clinical indication: Other: Hemoptysis S/P radiation for tongue CA TECHNIQUE: Imaging protocol: Computed tomography images of the neck with contrast. Radiation optimization: All CT scans at this facility use at least one of these dose optimization techniques: automated exposure control; mA and/or kV adjustment per patient size (includes targeted exams where dose is matched to clinical indication); or iterative reconstruction. Contrast material: ISOVUE 370; Contrast volume: 100 ml; Contrast route: INTRAVENOUS (IV); COMPARISON: No relevant prior studies available. FINDINGS: Limitations: Evaluation is limited without comparison images. If comparison images can be obtained from another facility, these would be helpful to review. There is dental amalgam artifact degrading examination. Brain: Visualized brain appears unremarkable. Orbital cavity: There is evidence of prior left cataract surgery. No evidence of orbital mass. Mastoid air cells: There is opacification in a few mastoid air cells. There is approximately 1.8 cm polyp in superior right nasal cavity; There is thinning of right sternocleidomastoid which could be postoperative such as from neck dissection. Nasopharynx: Unremarkable. Oropharynx: There is no well-defined tongue or oral cavity mass. Hypopharynx: Unremarkable. Larynx: Unremarkable. Normal epiglottis and aryepiglottic folds. Retropharyngeal space: Unremarkable. Submandibular/Parotid glands: Submandibular glands are not visualized and may be surgically absent or atrophic and correlate clinically. Thyroid: Normal. No enlarged or calcified nodules. Lymph nodes: There are no pathologically enlarged cervical lymph nodes. Trachea: There is a tiny air collection along posterior right margin of trachea consistent with incidental tiny diverticulum. Lungs: Visualized lungs are clear. Bones/joints: There are degenerative changes in spine with facet and uncinate osteophytes causing neural foraminal narrowing greatest at C5-C6 and C6-C7. Vasculature: There is calcification at carotid bifurcations without stenosis. Vertebral arteries are widely patent. Soft tissues: See "Vasculature" finding. IMPRESSION: No evidence of neck mass or adenopathy. Other findings as described. Electronically signed by: Cynthia Bond On 01/03/2021 13:01:18 PM
[2021-01-03] MEDS ORDERED: LEVO750T14 PO (13:24)
[2021-01-03 13:30] LABS: RSV AMPLIFICATION NEGATIVE (NEGATIVE)
[2021-01-03 13:50] VITALS: BP 158/95
== END 2021-01-03 13:50 | disposition home or self-care (01) ==
LOC: M ED 09:11
DX: J18.9 Pneumonia, unspecified organism (principal); R91.8 Other nonspecific abnormal finding of lung field; R04.2 Hemoptysis; I10 Essential (primary) hypertension; Z85.810 Personal history of malignant neoplasm of tongue; Z85.46 Personal history of malignant neoplasm of prostate; Z92.21 Personal history of antineoplastic chemotherapy; Z92.3 Personal history of irradiation; Z87.891 Personal history of nicotine dependence; Z79.899 Other long term (current) drug therapy
CPT/HCPCS: 70491; 71046; 71275; 80047; 80076; 85025; 85610; 87631; 99284; Q9967

== ENCOUNTER → 2021-02-23 | Outpatient (CLI) | payer MEDICARE ==
[~2021-02-23] MED LIST changes: +LEVO750T14 PO
--- NOTE | 2021-02-23 08:49 | REP ---
INDICATION: ABN FINDINGS OF LUNG FIELD. COMPARISON: CT angio 01/03/2021, 05/14/2016; CT 01/05/2007. TECHNIQUE: Noncontrast scanning through the chest with coronal and sagittal reconstructions. FINDINGS: Lung pradhan are well inflated. There is improvement in the infiltrate or atelectasis in the right middle lobe but curvilinear atelectasis or fibrosis persists. Some of this has a similar configuration to the 2017 appearance. Ground-glass opacities in the right upper and lower lobes are resolved and medial basal segment consolidation is largely resolved with only minimal curvilinear atelectasis. There is also curvilinear atelectatic change in the medial basal segment of the left lower lobe which was clear on the previous study. Remainder of the left lung is unremarkable. There is some minor apical pleuroparenchymal scarring, unchanged. No effusion, calcified pleural plaque, pneumothorax or other acute lung finding. Heart is not enlarged. The aorta is calcified at the arch. Sub cm nodes are seen in the right paratracheal, precarinal AP window, prevascular and hilar regions, none of them pathologic sized by CT size criteria (10 mm). Sternum, manubrium, medial clavicles, visible portion of scapula, humeral heads and ribs are unremarkable. Spine with small marginal osteophytes without compression deformity. Portion of the upper abdomen visible shows no acute finding. IMPRESSION: 1. Clearing of the patchy ground-glass opacities with the consolidation in the medial segment right middle lower lobe showing only minimal curvilinear atelectatic change. The right middle lobe shows a zone of curvilinear atelectasis and or fibrosis with improvement in the opacity since previous study. No effusion, new consolidation or opacities, pleural based mass or other new findings. Further follow-up in 3-4 months recommended to document stability or complete clearing. 2. No pathologic sized mediastinal or hilar adenopathy. The sub cm nodes seen throughout mediastinum and axilla are unchanged. 3. The heart, aorta, bony thorax and upper abdominal structures visible are unremarkable. <Electronically signed by Girish Mazariegos > 02/23/21 0892
== END ==
LOC: M RAD 07:28
PROVIDERS: ATTEND Internal Medicine Pulmonary Disease
DX: R91.8 Other nonspecific abnormal finding of lung field (principal)

== ENCOUNTER → 2021-06-12 | Outpatient (CLI) | payer MEDICARE ==
[~2021-06-12] MED LIST changes: -DICY20TA11 PO; +DICY20TA20 PO
== END ==
LOC: M RAD 09:59
PROVIDERS: ATTEND Internal Medicine Pulmonary Disease
DX: R91.8 Other nonspecific abnormal finding of lung field (principal)

== ENCOUNTER → 2021-12-25 | Outpatient (CLI) | payer MEDICARE | LOC: M PLAIMG 08:04 | PROVIDERS: ATTEND Internal Medicine Pulmonary Disease | DX: R91.8 Other nonspecific abnormal finding of lung field (principal) ==

== ENCOUNTER 2022-03-16 14:55 | Emergency (ER) | payer MEDICARE ==
[~2022-03-16] VITALS: Ht 172.7 cm; Wt 81.1 kg
[2022-03-16] MEDS ORDERED: BACITRACIN OINTMENT 30GM TUBE TOP STA (17:56)
[2022-03-16] MEDS ORDERED: CEPHALEXIN 500 MG CAP PO ONE (18:00)
[2022-03-16] MEDS ORDERED: LIDOCAINE 1% MDV 20ML VIAL SC ONE (18:00)
[2022-03-16] MEDS ORDERED: BOOSTRIX/ADACEL VACCINE (DIPHTH/PERTUSS/ACELL/TETANUS) 0.5ML SYR IM ONE (18:00)
[2022-03-16] MEDS ORDERED: EMLA CREAM 5GM TUBE (LIDOCAINE/PRILOCAINE) TOP ONE (18:00)
[2022-03-16] MEDS ORDERED: CEPH500C PO (19:07)
[2022-03-16 19:16] VITALS: BP 130/78
== END 2022-03-16 19:17 | disposition home or self-care (01) ==
LOC: M ED 14:55
DX: S01.511A Laceration without foreign body of lip, initial encounter (principal); S01.01XA Laceration without foreign body of scalp, initial encounter; W11.XXXA Fall on and from ladder, initial encounter; Y92.099 Unspecified place in other non-institutional residence as the place of occurrence of the external cause; I10 Essential (primary) hypertension; Z79.899 Other long term (current) drug therapy

== ENCOUNTER → 2022-06-08 | Outpatient (CLI) | payer MEDICARE ==
[~2022-06-08] MED LIST changes: +CEPH500C PO
== END ==
LOC: M PLAIMG 10:34
PROVIDERS: ATTEND Internal Medicine Pulmonary Disease
DX: R91.8 Other nonspecific abnormal finding of lung field (principal)

== ENCOUNTER → 2022-08-30 | Outpatient (CLI) | payer MEDICARE | LOC: M WUC 13:53 | PROVIDERS: ATTEND Internal Medicine | DX: R05.9 Cough, unspecified (principal) ==

== ENCOUNTER → 2023-09-05 | Outpatient (CLI) | payer MEDICARE | LOC: M RAD 09:25 | PROVIDERS: ATTEND Internal Medicine Pulmonary Disease | DX: R91.8 Other nonspecific abnormal finding of lung field (principal) ==

== ENCOUNTER 2023-09-29 07:41 | Day surgery (SDC) | payer MEDICARE ==
[~2023-09-29] VITALS: Ht 170.2 cm; Wt 76.1 kg
[~2023-09-29 07:41] MED LIST changes: +ALBU2.5V10 INH
[2023-09-29] MEDS ORDERED: LIDOCAINE 2% 100MG/5ML SDV (FOR ANES.) As Ordered ONE (08:09)
[2023-09-29] MEDS: NS 1,000 ML IV ONE (08:09)
[2023-09-29] MEDS ORDERED: propofoL 200 MG/20 ML VIAL As Ordered ONE (08:09)
[2023-09-29] MEDS ORDERED: GLYCOPYRROLATE INJ 0.2 MG/ML 2 ML VIAL As Ordered ONE (08:43)
[2023-09-29] MEDS ORDERED: ePHEDrine SULFATE 25 MG/5 ML(5MG/ML) SYRINGE As Ordered ONE (08:43)
[2023-09-29] MEDS ORDERED: PHENYLephrine 500MCG 5ML (100MCG/ML) SYRINGE As Ordered ONE (08:50)
[2023-09-29 08:58] VITALS: TEMP 97.1
[2023-09-29 09:18] VITALS: BP 90/53; O2SAT 96
== END 2023-09-29 09:23 | disposition home or self-care (01) ==
LOC: M OPP 07:41
PROVIDERS: ATTEND Internal Medicine Gastroenterology
DX: Z86.010 Personal history of colon polyps (principal); D12.5 Benign neoplasm of sigmoid colon; K64.8 Other hemorrhoids; Q43.8 Other specified congenital malformations of intestine; I48.91 Unspecified atrial fibrillation; E03.9 Hypothyroidism, unspecified; Z87.891 Personal history of nicotine dependence; Z79.51 Long term (current) use of inhaled steroids; Z79.890 Hormone replacement therapy; Z79.899 Other long term (current) drug therapy
CPT/HCPCS: 45385; 88305; J2371

== ENCOUNTER → 2024-01-17 | Outpatient (CLI) | payer MEDICARE | LOC: M RAD 07:03 | PROVIDERS: ATTEND Internal Medicine Pulmonary Disease | DX: R91.8 Other nonspecific abnormal finding of lung field (principal) ==